=== PATIENT | male | born 1990 | race Caucasian/White ===

== ENCOUNTER 2025-05-14 09:02 | Emergency (ER) | payer OTHER, SELFPAY ==
[2025-05-14 09:04] VITALS: BP 138/94
[2025-05-14 09:27] VITALS: BMI 33.5
[2025-05-14 09:38] VITALS: BP 131/82
--- NOTE | 2025-05-14 09:38 | ED.GENMED ---
History of Present Illness
General
Chief Complaint: Back Pain
Source: patient
Exam Limitations: none
Time Seen by Provider: 05/14/25 09:12
Nursing documentation reviewed up to this point in time: agreed with
History of Present Illness
History of Present Illness:
Patient is a 34-year-old male who complains of left-sided low back pain which radiates to his left leg. Symptoms started after pushing a picnic table. This occurred 3 days ago. Symptoms worsened yesterday. He did take ibuprofen without relief.
He does have history of previous back injury years ago in 2016. He denies any numbness Charlette weakness lower extremities. Denies any saddle paresthesia. He complains of pain worse with movement.
Phy Exam
General Physical Exam
General Presentation: no apparent distress
General age: appears stated age
General Skin: warm and dry
General Habitus: normal
General Mental: alert
General Hydration: appears well hydrated
Neurological Exam
Neurological Exam: alert, oriented x3, no motor deficits, no sensory deficits and other (Normal distal sensation bilaterally normal dorsiflexion plantarflexion normal bilateral patellar reflexes)
Musculoskeletal Exam
Musculoskeletal Exam: other (+ tender to left lateral lumbar region no midline tenderness )
Skin Exam
Skin Exam: normal color and warm/dry
Psychiatric Exam
Psychiatric Exam: normal mood/affect
Course
Orders/Labs/Results
Orders:
Orders
05/14/25 09:42
Dexamethasone Sod Phosphate [Decadron] 10 mg IM NOW STA
Vital Signs
Initial and Last Documented VS:
Initial Vital Signs
Temp Pulse Resp BP Pulse Ox
98.4 F 71 16 138/94 100
05/14/25 09:04 05/14/25 09:04 05/14/25 09:04 05/14/25 09:04 05/14/25 09:04
Last Documented Vital Signs
Temp Pulse Resp BP Pulse Ox
98.4 F 71 16 138/94 100
05/14/25 09:04 05/14/25 09:04 05/14/25 09:04 05/14/25 09:04 05/14/25 09:41
MDM/Problems Addressed
Differential Diagnosis Includes:
Not limited to muscle strain, sciatica
MDM/Problems Addressed:
Symptoms are consistent with lumbar strain, mild sciatica. Patient does have pain rating down his left leg with a normal neurovascular neurologic exam. Will DC with steroids and muscle relaxer close outpatient follow-up with PCP.
*Pulse Oximetry
SaO2: 100
Oxygen Mode of Delivery: Room air
Patient hypoxic: no
*Critical Care Note
Total Time (30-74mins, 75-104mins- exclusive of procedures): Not Applicable
ED Attending Note
-
Portions of this chart may have been created with voice recognition software.� Occasional wrong word or��sound alike� substitutions may have occurred due to the inherent limitations of voice recognition software.
Discharge Plan
Departure
Patient Disposition: Home (Routine Discharge)
Date of Disposition: 05/14/25
Time of Disposition: 09:41
Patient with high blood pressure during this ER visit?: Yes
Condition: Fair
Covid-19: Not Applicable
Discharge Problem:
Lumbar strain, Sciatica
Instructions: Low Back Pain (DC), Radiculopathy (DC)
Prescriptions:
New
cyclobenzaprine 10 mg tablet
10 mg PO Q8H PRN (Reason: low back pain ) Qty: 10 0RF
prednisone 10 mg Tablet
See Rx Instructions .ROUTE .COMPLEX Qty: 30 0RF
Rx Instructions:
Take By Mouth:
40 mg daily x3 days, 30 mg daily x3 days,
20 mg daily x3 days, 10 mg daily x3 days.
Referrals:
NONE,* [Family Provider, Internal Medicine]
Activity Restrictions/Additional Instructions:
As discussed ice to the affected area for the next 24 to 48 hours 20 minutes at a time several times a day.
After you may switch to warm moist heat.
Start prednisone taper tomorrow as you were given the first dose here in the ER. Flexeril as needed for muscle relaxer. This may cause drowsiness no driving or drink alcohol with taking this medication. Follow-up with family doctor in the next
several days.
return if any worsening of symptoms
Interventions
Interventions:
*Risk Screen - Suicide Last Done: 05/14/25 09:06
*General Assessment Last Done: 05/14/25 09:27
*Neglect/Abuse Screening Last Done: 05/14/25 09:06
*ED- Fall Risk Assessment Last Done: 05/14/25 09:27
*ED COVID-19 Vaccine History Last Done: 05/14/25 09:27
ED-Musculoskeletal Assessment Last Done: 05/14/25 09:38
Discharge Date and Time
Print Language: OCCITAN
[2025-05-14] MEDS: DECADRON 10 MG IM (09:46)
== END 2025-05-14 09:55 | disposition home or self-care (01) ==
LOC: EMR 09:02
PROVIDERS: EMERGENCY PHYSICIAN Emergency Medicine
DX: S39.012A Strain of muscle, fascia and tendon of lower back, initial encounter (principal); X50.9XXA Other and unspecified overexertion or strenuous movements or postures, initial encounter; M54.32 Sciatica, left side; R03.0 Elevated blood-pressure reading, without diagnosis of hypertension
CPT/HCPCS: 99284; 96372